=== PATIENT | female | born 1975 | race Caucasian/White ===

== ENCOUNTER → 2017-06-08 | Outpatient (CLI) | payer BC ==
[~2017-06-08] MED LIST: BUPR150T2 PO; CALCAVITD PO; EZET10 PO; HYDSUL200; IBUP800; MEDR150I; MULVITMINE; OMEP20ER PO; ONDA8ODT MM; PANT40 PO; PRED5; PROACE100 PO; RXONDA4ODT MM; RXPROACE PO; VITS/SUPPS
[2017-06-08 18:52] LABS: BASOPHILS PERCENT AUTO 1 % (0-2); EOSINOPHILS ABSOLUTE AUTO 0.53 K/mm3 (0.00-0.68); EOSINOPHILS PERCENT AUTO 7 % (0-6); Hemoglobin 12.4 g/dL (11.5-16.0); IMMATURE GRAN ABSOLUTE AUTO 0.02 K/mm3 (0.00-0.10); IMMATURE GRAN PERCENT AUTO 0 % (0-1); LYMPHOCYTES ABSOLUTE AUTO 3.75 K/mm3 (0.84-5.20); LYMPHOCYTES PERCENT AUTO 47 % (21-46); MONOCYTES ABSOLUTE AUTO 0.67 K/mm3 (0.16-1.47); MONOCYTES PERCENT AUTO 8 % (4-13); Mean Corpuscular HGB 33.3 pg (26.0-34.0); Mean Corpuscular HGB Conc 34.4 g/dL (31.5-36.5); Mean Corpuscular Volume 97 fL (80-100); Mean Platelet Volume 9.9 fL (9.1-12.4); NEUTROPHILS PERCENT AUTO 36 % (41-73); Platelet Count 232 K/mm3 (150-400); RDW Coefficient Variation 12.3 % (11.7-14.2); RDW Standard Deviation 43.7 fL (35.1-46.3); Red Blood Cell Count 3.72 M/mm3 (3.80-5.20); White Blood Cell Count 7.97 K/mm3 (4.00-11.30)
[2017-06-08 19:01] LABS: Alanine Aminotransfer (ALT/SGP 18 U/L (12-78); Albumin, Blood 4.1 g/dL (3.4-5.0); Albumin/Globulin Ratio 1.3 (0.8-1.8); Alk Phos 43 U/L (40-126); Anion Gap 10 mmol/L (6-16); Aspartate Aminotrans (AST/SGOT 8 U/L (12-37); Bilirubin, Total 0.2 mg/dL (0.1-1.0); Blood Urea Nitrogen 10 mg/dL (8-24); Bun/Creatinine Ratio 13.5 (12.0-20.0); CO2, Blood 28 mmol/L (21-32); Calcium, Blood 9.2 mg/dL (8.5-10.1); Chloride, Blood 102 mmol/L (98-108); Creatinine, Blood 0.74 mg/dL (0.40-1.00); Globulin, Blood 3.1 g/dL (2.2-4.0); Glomerular Filtration Rate >60 (60-); Glucose, Blood 98 mg/dL (70-99); Potassium, Blood 3.9 mmol/L (3.5-5.5); Sodium, Blood 140 mmol/L (136-145); Total Protein, Blood 7.2 g/dL (6.4-8.2)
== END | disposition home or self-care (01) ==
LOC: LAB SHORT 18:45 → LAB EV 18:45
PROVIDERS: Physician Assistant
DX: R10.33 Periumbilical pain (principal)
CPT/HCPCS: 80053; 83690; 85025

== ENCOUNTER 2019-04-25 09:19 | Day surgery (SDC) | payer BC ==
[~2019-04-25] VITALS: Ht 157.5 cm; Wt 75.8 kg
[~2019-04-25 09:19] MED LIST changes: +CYCL10 PO; +PSEU120ER PO; +ZOLP5 PO
[2019-04-25] MEDS ORDERED: ACET500 (09:42)
== END 2019-04-25 10:55 | disposition home or self-care (01) ==
LOC: ORSCSDS 09:19
PROVIDERS: Internal Medicine Gastroenterology
PROC: 0DBH8ZX Excision of Cecum, Via Natural or Artificial Opening Endoscopic, Diagnostic (ICD-10-PCS; principal; 2019-04-25 10:30)
DX: R10.31 Right lower quadrant pain (principal); Z83.71 Family history of colonic polyps; D12.0 Benign neoplasm of cecum; K64.8 Other hemorrhoids; E78.00 Pure hypercholesterolemia, unspecified; F41.8 Other specified anxiety disorders; E66.9 Obesity, unspecified; Z68.32 Body mass index [BMI] 32.0-32.9, adult; F32.9 Major depressive disorder, single episode, unspecified; Z79.899 Other long term (current) drug therapy
CPT/HCPCS: 88305; J2405; J2704; J7120

== ENCOUNTER 2022-01-15 17:55 | Emergency (ER) | payer OTHER ==
[~2022-01-15] VITALS: Ht 157.5 cm; Wt 85.3 kg
[~2022-01-15 17:55] MED LIST changes: +ACET500
[2022-01-15 18:47] LABS: BASOPHILS ABSOLUTE AUTO 0.05 K/mm3 (0.00-0.23); BASOPHILS PERCENT AUTO 1 % (0-2); EOSINOPHILS ABSOLUTE AUTO 0.15 K/mm3 (0.00-0.68); EOSINOPHILS PERCENT AUTO 2 % (0-6); Hematocrit 34.9 % (33.0-51.0); Hemoglobin 12.2 g/dL (11.5-16.0); IMMATURE GRAN ABSOLUTE AUTO 0.02 K/mm3 (0.00-0.10); IMMATURE GRAN PERCENT AUTO 0 % (0-1); LYMPHOCYTES PERCENT AUTO 42 % (21-46); MONOCYTES ABSOLUTE AUTO 0.64 K/mm3 (0.16-1.47); MONOCYTES PERCENT AUTO 8 % (4-13); Mean Corpuscular HGB 33.7 pg (26.0-34.0); Mean Corpuscular Volume 96 fL (80-100); Mean Platelet Volume 9.5 fL (9.1-12.4); NEUTROPHILS ABSOLUTE AUTO 3.84 K/mm3 (1.96-9.15); NEUTROPHILS PERCENT AUTO 47 % (41-73); Platelet Count 268 K/mm3 (150-400); RDW Coefficient Variation 12.1 % (11.7-14.2); RDW Standard Deviation 43.2 fL (35.1-46.3); Red Blood Cell Count 3.62 M/mm3 (3.80-5.20)
[2022-01-15 19:03] LABS: Albumin, Blood 3.9 g/dL (3.4-5.0); Albumin/Globulin Ratio 1.2 (0.8-1.8); Bilirubin, Total 0.3 mg/dL (0.1-1.0); Bun/Creatinine Ratio 21.3 (12.0-20.0); Calcium, Blood 9.2 mg/dL (8.5-10.1); Creatinine, Blood 0.75 mg/dL (0.40-1.00); Globulin, Blood 3.2 g/dL (2.2-4.0); Potassium, Blood 3.9 mmol/L (3.5-5.5); Total Protein, Blood 7.1 g/dL (6.4-8.2)
[2022-01-15] MEDS ORDERED: 1/2 NS 250ml250 ML (19:11)
[2022-01-15] MEDS ORDERED: MELA3 PO (19:11)
[2022-01-15] MEDS ORDERED: Norflex100 MG (19:12)
== END 2022-01-15 21:46 | disposition home or self-care (01) ==
LOC: ER 17:55
PROVIDERS: Student in an Organized Health Care Education/Training Program
DX: R07.9 Chest pain, unspecified (principal); E78.00 Pure hypercholesterolemia, unspecified; Z88.2 Allergy status to sulfonamides; Z91.040 Latex allergy status; Z79.899 Other long term (current) drug therapy
CPT/HCPCS: 71045; 80053; 84484; 85025; 93005; 93010

== ENCOUNTER 2022-06-30 11:23 | Day surgery (SDC) | payer OTHER ==
[~2022-06-30] VITALS: Ht 157.5 cm; Wt 80.6 kg
[~2022-06-30 11:23] MED LIST changes: +1/2 NS 250ml250 ML; +MELA3 PO; +Norflex100 MG
[2022-06-30] MEDS ORDERED: PROG100 (11:46)
[2022-06-30] MEDS ORDERED: ESTRADIOL (TWI1 EAC4 (11:46)
[2022-06-30] MEDS ORDERED: IBUP600 (11:47)
[2022-06-30 14:56] VITALS: BP 107/77
--- NOTE | 2022-06-30 15:02 | NUR ---
06/30/22 1502 Leslie Joseph LATE ENTRY: PT C/O THROAT SORENESS. EXPLAINED TO THE PATIENT THAT DILATATION WAS PERFORMED. PT ADVISED TO DRINK ICY COLD FLUIDS OR WARM FLUIDS TO SEE WHICH HELPS. SORENESS SHOULD IMPROVE OVER THE NEXT 24 HOURS. IF PAIN WORSENS OR BECOMES INTOLERABLE PT ADVISED TO CONTACT DR. CHIANG
== END 2022-06-30 14:10 | disposition home or self-care (01) ==
LOC: ORSCSDS 11:23
PROVIDERS: Internal Medicine Gastroenterology
PROC: 0DB98ZX Excision of Duodenum, Via Natural or Artificial Opening Endoscopic, Diagnostic (ICD-10-PCS; principal; 2022-06-30 12:45)
PROC: 0DB58ZX Excision of Esophagus, Via Natural or Artificial Opening Endoscopic, Diagnostic (ICD-10-PCS; principal; 2022-06-30 12:45)
PROC: 0D758ZZ Dilation of Esophagus, Via Natural or Artificial Opening Endoscopic (ICD-10-PCS; principal; 2022-06-30 12:45)
PROC: 0DB68ZX Excision of Stomach, Via Natural or Artificial Opening Endoscopic, Diagnostic (ICD-10-PCS; principal; 2022-06-30 12:45)
DX: R13.10 Dysphagia, unspecified (principal); K20.90 Esophagitis, unspecified without bleeding; R10.13 Epigastric pain; E78.00 Pure hypercholesterolemia, unspecified; F41.8 Other specified anxiety disorders; E78.5 Hyperlipidemia, unspecified; Z79.899 Other long term (current) drug therapy
CPT/HCPCS: 88305; 88342; J2704; J7120

== ENCOUNTER 2024-03-08 10:09 | Day surgery (SDC) | payer OTHER ==
[~2024-03-08] VITALS: Ht 157.5 cm; Wt 86.9 kg
[~2024-03-08 10:09] MED LIST changes: +ESTRADIOL (TWI1 EAC4; +IBUP600; +Lactated Ringer's 1,000 ML IV ONE; +PROG100
[2024-03-08] MEDS ORDERED: propofoL 20 ML IV ONE (10:27)
[2024-03-08] MEDS ORDERED: ESTRADIOL (TWI1 EAC3 TD (10:41)
[2024-03-08] MEDS ORDERED: VITAMIN D5000 UNIT (10:41)
[2024-03-08] MEDS ORDERED: ATORVASTATIN CA20 MG PO (10:43)
[2024-03-08] MEDS ORDERED: PROG100 PO (10:43)
[2024-03-08] MEDS ORDERED: Phentermine HCl30 MG (10:44)
[2024-03-08] MEDS ORDERED: FentaNYL Citrate 50 MCG/ML 2 ML Injection ONE (10:44)
[2024-03-08] MEDS ORDERED: Midazolam HCl 1MG / ML 2ML Vial ONE (10:45)
[2024-03-08] MEDS ORDERED: Lactated Ringer's 1,000 ML IV ONE (11:15)
[2024-03-08] MEDS ORDERED: Dexamethasone Sod Phos 10 MG/ML 1ML VIAL ONE (11:40)
[2024-03-08] MEDS ORDERED: Ondansetron HCl 2 MG / ML 2ML Vial ONE (11:40)
[2024-03-08] MEDS ORDERED: Ketorolac Tromethamine 30mg Vial ONE (11:40)
--- NOTE | 2024-03-08 12:21 | NUR ---
03/08/24 1221 Celina Holm NORMAL SALINE DEFICIT OF 200ML. NOTIFIED.
--- NOTE | 2024-03-08 12:28 | NUR ---
03/08/24 1228 Tiffanie Baez 1216: PT ARRIVES TO PACU W/ ORAL AIRWAY IN PLACE, ON RA. PT'S O2 SAT 91%. PLACED NC @ 5L, O2 SAT INCREASED TO 99%. VSS. NO RESPONSE TO VERBAL STIMULI. 1226: ORAL AIRWAY REMOVED AT THIS TIME. PT FOLLOWS COMMANDS, DENIES PAIN/NAUSEA. NO VISIBLE SIGNS OF DISTRESS NOTED.
--- NOTE | 2024-03-08 12:42 | NUR ---
03/08/24 1242 Tiffanie Baez 1235: PT TRANSFERS TO SDU, A&O. PT STATES SHE IS HAVING SOME MILD CRAMPING TO LOWER ABDOMEN, RATING IT 2/10 & TOLERABLE. PT DENIES NAUSEA. VSS, ON RA. PERIPAD REMAINS C/D/I. NO VISIBLE SIGNS OF DISTRESS NOTED.
[2024-03-08] MEDS ORDERED: OxyCODONE 5 mg/Acetamin 325 mg TABLET ONE (12:56)
[2024-03-08 13:30] VITALS: BP 121/86
== END 2024-03-08 13:20 | disposition home or self-care (01) ==
LOC: ORSCSDS 10:09
PROVIDERS: Obstetrics & Gynecology
PROC: 0UDB8ZX Extraction of Endometrium, Via Natural or Artificial Opening Endoscopic, Diagnostic (ICD-10-PCS; principal; 2024-03-08 11:30)
DX: N95.0 Postmenopausal bleeding (principal); K21.9 Gastro-esophageal reflux disease without esophagitis; E78.5 Hyperlipidemia, unspecified; F33.9 Major depressive disorder, recurrent, unspecified; Z79.899 Other long term (current) drug therapy
CPT/HCPCS: 88305; A9270; J1100; J1885; J2250; J2405; J2704; J3010; J7120

== ENCOUNTER → 2024-08-09 | Outpatient (CLI) | payer OTHER ==
[~2024-08-09] MED LIST changes: +ATORVASTATIN CA20 MG PO; +ESTRADIOL (TWI1 EAC3 TD; -Lactated Ringer's 1,000 ML IV ONE; +MAGNESIUM OXID500 MG; +PROBIOTIC1 EA14; +PROG100 PO; +Phentermine HCl30 MG; +VITAMIN D5000 UNIT
[2024-08-14 15:54] LABS: HPV HIGH RISK BY TMA Not Detected; HPV SOURCE Cervical
== END ==
LOC: LAB SHORT 18:26 → LAB 18:26
PROVIDERS: Obstetrics & Gynecology
DX: Z01.419 Encounter for gynecological examination (general) (routine) without abnormal findings (principal)
CPT/HCPCS: 87624; G0123

== ENCOUNTER 2024-08-14 07:16 | Day surgery (SDC) | payer OTHER ==
[~2024-08-14] VITALS: Ht 157.5 cm; Wt 98.6 kg
[~2024-08-14 07:16] MED LIST changes: -MAGNESIUM OXID500 MG; -PROBIOTIC1 EA14
[2024-08-14] MEDS ORDERED: PROBIOTIC1 EA14 (07:48)
[2024-08-14] MEDS ORDERED: MAGNESIUM OXID500 MG (07:49)
[2024-08-14 09:47] VITALS: BP 98/73
== END 2024-08-14 09:42 | disposition home or self-care (01) ==
LOC: ORSCSDS 07:16
PROVIDERS: Internal Medicine Gastroenterology
PROC: 0DBM8ZX Excision of Descending Colon, Via Natural or Artificial Opening Endoscopic, Diagnostic (ICD-10-PCS; principal; 2024-08-14 08:45)
DX: Z12.11 Encounter for screening for malignant neoplasm of colon (principal); Z86.0101 Personal history of adenomatous and serrated colon polyps; D12.2 Benign neoplasm of ascending colon; E78.5 Hyperlipidemia, unspecified; E66.812 Obesity, class 2; F41.8 Other specified anxiety disorders; Z79.899 Other long term (current) drug therapy
CPT/HCPCS: 88305; J2704; J7120